=== PATIENT | female | born 1990 | race Caucasian/White ===

== ENCOUNTER 2020-07-23 09:00 | Inpatient (IN) | payer OTHER ==
[~2020-07-23] VITALS: Ht 165.1 cm; Wt 80.7 kg
[2020-07-24] MEDS ORDERED: PRENATABS FA T1 EACH PO (07:58)
[2020-07-24 08:10] LABS: HEMOGLOBIN 10.6 gm/dl (12.3-15.3); RED BLOOD COUNT 3.51 M/UL (4.00-5.10)
[2020-07-24] MEDS ORDERED: IBUPROFEN800 MG PO (13:11)
[2020-07-24] MEDS ORDERED: HYDROCODONE-AC1 EAC1 PO (13:11)
[2020-07-24] MEDS ORDERED: DOCUSATE SODIU100 MG PO (13:11)
[2020-07-25 05:51] LABS: HEMOGLOBIN 9.4 gm/dl (12.3-15.3)
== END 2020-07-25 15:01 | disposition home or self-care (01) | DRG 788 ==
LOC: OB 07-24 07:02
PROVIDERS: ADMIT Obstetrics & Gynecology
PROC: 4A1HXCZ Monitoring of Products of Conception, Cardiac Rate, External Approach (ICD-10-PCS; 2020-07-24)
PROC: 10D00Z1 Extraction of Products of Conception, Low, Open Approach (ICD-10-PCS; principal; 2020-07-24 09:45)
DX: O34.211 Maternal care for low transverse scar from previous cesarean delivery (principal); Z3A.39 39 weeks gestation of pregnancy; Z37.0 Single live birth; O99.344 Other mental disorders complicating childbirth; F43.10 Post-traumatic stress disorder, unspecified; Z20.822 Contact with and (suspected) exposure to COVID-19; O76 Abnormality in fetal heart rate and rhythm complicating labor and delivery
CPT/HCPCS: 36415; 81001; 82800; 85014; 85018; 85025; C9113; J1580; J1885; J2274; J2405; J2590; J3010; J7120; U0002